=== PATIENT | female | born 1950 | race Caucasian/White ===

== ENCOUNTER 2020-03-28 08:05 | Inpatient (IN) | payer MEDICARE, BC ==
[~2020-03-28 08:05] MED LIST: Ropivacaine 32 ML, dexAMETHasone 8 MG, EPINEPHrine 0.4 MG, Sodium Chloride 0.9% 45.6 ML NERVRT SCH
[2020-03-28] MEDS ORDERED: Rocuronium 50 MG/5 ML Vial ONE (08:18)
[2020-03-28] MEDS ORDERED: Propofol 200 MG/20 ML SDV ONE (08:18)
[2020-03-28] MEDS ORDERED: Glycopyrrolate 0.2 MG/ML 5 ML MDV ONE (08:18)
[2020-03-28] MEDS ORDERED: Neostigmine Methylsulfate 1 MG/ML 5 ML Syringe ONE (08:18)
[2020-03-28] MEDS ORDERED: Dexamethasone 4 MG/ML SDV ONE (08:18)
[2020-03-28] MEDS ORDERED: Ondansetron 4 MG/2 ML SDV ONE (08:18)
[2020-03-28] MEDS ORDERED: Succinylcholine 200 MG/10 ML MDV ONE (08:18)
[2020-03-28] MEDS ORDERED: Sodium Chloride 0.9% 1,000 ML IV SCH (08:30)
[2020-03-28] MEDS ORDERED: metroNIDAZOLE/Normal Saline 500 MG in Premix Bag 1 BAG IV ONE (08:30)
[2020-03-28] MEDS ORDERED: ceFAZolin 2 GM in Premix Bag 1 BAG IV ONE (08:30)
[2020-03-28] MEDS ORDERED: fentaNYL 250 MCG/5 ML SDV ONE (09:20)
[2020-03-28] MEDS ORDERED: Bupivacaine 0.5%/EPINEPHrine 1:200,000 50 ML MDV INJECT ONE ×2 (11:29)
[2020-03-28] MEDS ORDERED: HYDROmorphone/Normal Saline 15 MG/30 ML PCA IV PRN (11:54)
[2020-03-28] MEDS ORDERED: Zolpidem 5 MG Tab PO PRN (11:56)
[2020-03-28] MEDS ORDERED: hydrOXYzine HCL 100 MG/2 ML SDV IM PRN (11:56)
[2020-03-28] MEDS ORDERED: Docusate Sodium 100 MG Cap PO PRN (11:56)
[2020-03-28] MEDS ORDERED: diphenhydrAMINE 50 MG/ML SDV IVPUSH PRN (11:56)
[2020-03-28] MEDS ORDERED: Bisacodyl 5 MG Tab PO PRN (11:56)
[2020-03-28] MEDS ORDERED: Benzocaine/Cetylpyridinium/Menthol Lozenge MUCMEM PRN (11:56)
[2020-03-28] MEDS ORDERED: fentaNYL 100 MCG/2 ML SDV ONE (11:57)
[2020-03-28] MEDS ORDERED: Naloxone 0.4 MG/ML SDV IV PRN (12:00)
[2020-03-28] MEDS ORDERED: fentaNYL 100 MCG/2 ML SDV IVPUSH ONE (12:45)
[2020-03-28] MEDS: Sodium Chloride 0.9% 1,000 ML IV SCH ×2 (13:41→19:50)
--- NOTE | 2020-03-28 14:02 | PCM.CONS ---
H&P History of Present Illness - General Date of Service: 03/28/20 Admit Problem/Dx: Admission Diagnosis/Problem Admission Diagnosis/Problem Hernia of abdominal cavity Source of Information: Patient, Family, Provider, RN Notes Reviewed History Limitations: Reports: Altered Mental Status (Recovering from anesthesia) - History of Present Illness Initial Comments - Free Text/Narative: Ms. Nevarez is a 69-year-old woman who I been asked to see by Dr. Mccormick for assistance in medical management following a large ventral hernia repair. She has a known history of coronary artery disease as well as congestive heart failure. She has been doing well prior to surgery with no symptoms of chest pain and well compensated congestive heart failure. She is status post place ment of a defibrillator/pacemaker. She did well through the surgery and is stable during the initial postoperative period. Abdomen Pain Score (Numeric/FACES): 9 - Related Data Allergies/Adverse Reactions: Allergies Allergy/AdvReac Type Severity Reaction Status Date / Time aspirin Allergy Severe Anaphylactic Verified 03/28/20 08:31 [From [place] (aspirin)] Shock calcium carbonate Allergy Severe Anaphylactic Verified 03/28/20 08:31 [From [place] (aspirin)] Shock magnesium Allergy Severe Anaphylactic Verified 03/28/20 08:31 [From [place] (aspirin)] Shock Bjrgnbc-Opl-Ptt Reductase Allergy Lethargy Verified 03/28/20 08:31 Inhibitor Home Medications: Home Meds Clopidogrel Bisulfate [Clopidogrel] 75 mg PO BEDTIME 06/24/18 [History] Ergocalciferol (Vitamin D2) [Vitamin D2] 100,000 unit PO Q14D 06/24/18 [History] Isosorbide Mononitrate [Isosorbide Mononitrate ER] 1 tab PO DAILY 06/24/18 [History] Losartan Potassium 1 tab PO BID 06/24/18 [History] Warfarin Sodium 5 mg PO .SUN,MTTHSAT 06/24/18 [History] calcitrioL [Calcitriol] 1 cap PO DAILY 06/24/18 [History] carvediloL [Carvedilol] 6.25 mg PO BID 06/24/18 [History] Furosemide [Lasix] 80 mg PO DAILY 06/25/18 [History] Acetaminophen [Tylenol Arthritis] 2 cap PO BID 03/25/20 [History] Citalopram Hydrobromide [Celexa] 40 mg PO DAILY 03/25/20 [History] Denosumab [Prolia] 60 mg SQ .Q6MO 03/25/20 [History] Glucosam/Chond/Collagen/Hyalur [Glucosamine Chondroitin] 1 each PO DAILY 03/25/20 [History] Mirtazapine [Remeron] 15 mg PO BEDTIME 03/25/20 [History] Rosuvastatin [Crestor] 5 mg PO DAILY 03/25/20 [History] Tamsulosin [Tamsulosin 24 Hr] 0.4 mg PO DAILY 03/25/20 [History] Trimo-Kraus 1 applic VAG DAILY 03/25/20 [History] Ubidecarenone [Coenzyme Q10] 100 mg PO DAILY 03/25/20 [History] Warfarin Sodium [Coumadin] 7.5 mg PO .MONANDFRI 03/25/20 [History] metOLazone [Zaroxolyn] 5 mg PO DAILY 03/25/20 [History] Past Medical History HEENT History: Reports: Cataract Cardiovascular History: Reports: Afib, Bypass, Hypertension, Pacemaker, Prior Cardiac Arrest Other Cardiovascular History: QUADRUPLE BYPASS Gastrointestinal History: Reports: Bowel Obstruction Other Gastrointestinal History: Umbilical Hernia 31-years ago Genitourinary History: Reports: Renal Disease MEDICAL RECORDS CODER History: Reports: Musculoskeletal History: Reports: Arthritis Neurological History: Reports: Concussion Psychiatric History: Reports: Depression Endocrine/Metabolic History: Reports: Other (See Below) Other Endocrine/Metabolic History: not after rny Hematologic History: Reports: Anemia, B12 Deficiency, Iron Deficiency Other Hematologic History: coumadin - Infectious Disease History Infectious Disease History: Reports: Chicken Pox, Measles, Mumps - Past Surgical History HEENT Surgical History: Reports: Cataract Surgery Other Cardiovascular Surgeries/Procedures: Open Heart Surgery 21-years ago 06/24/18 GI Surgical History: Reports: Appendectomy, Bariatric Procedure, Cholecystectomy, Colonoscopy, Hernia, Inguinal Female Surgical History: Reports: Section Neurological Surgical History: Reports: None Social & Family History - Family History Family Medical History: Unobtainable - Tobacco Use Smoking Status *Q: Never Smoker Second Hand Smoke Exposure: No - Caffeine Use Caffeine Use: Reports: Soda - Recreational Drug Use Recreational Drug Use: No H&P Review of Systems - Review of Systems: Review Of Systems: See Below General: Reports: ROS unobtainable (Decreased level of consciousness secondary to anesthesia and pain medications) Exam - Exam Exam: See Below - Vital Signs Vital Signs: Last Vital Signs Temp 97.5 F 03/28/20 13:36 Pulse 58 L 03/28/20 13:36 Resp 14 03/28/20 13:36 BP 90/44 L 03/28/20 13:36 Pulse Ox 96 03/28/20 13:36 Weight: 137 lb - Exam Quality Assessment: DVT Prophylaxis General: Sedated, Lethargic Neck: Supple, Trachea Midline, +2 Carotid Pulse wo Bruit Lungs: Clear to Auscultation, Normal Respiratory Effort Cardiovascular: Regular Rate, Normal S1, Normal S2, Irregular Rhythm, Systolic Murmur. No: Diastolic Murmur GI/Abdominal Exam: Soft, No Organomegaly, Tender. No: Distended, Guarding, Rigid, Rebound Extremities: Non-Tender, No Pedal Edema Sepsis Event Note - Focused Exam Vital Signs: Vital Signs Temp Pulse Resp BP Pulse Ox Pulse Ox 03/28/20 13:36 97.5 F 58 L 14 90/44 L 96 03/28/20 13:24 97.5 F 57 L 14 100/40 L 97 03/28/20 13:06 97.5 F 53 L 14 93/48 L 97 03/28/20 12:50 15 106/48 L 95 03/28/20 12:45 14 112/47 L 96 03/28/20 12:40 16 110/52 L 95 03/28/20 12:35 15 106/47 L 95 03/28/20 12:30 15 104/52 L 94 L 03/28/20 12:25 15 105/48 L 96 03/28/20 12:20 15 102/47 L 94 L 03/28/20 12:15 98.6 F 68 16 108/47 L 97 03/28/20 12:10 68 16 110/49 L 97 03/28/20 12:05 68 16 105/44 L 97 03/28/20 12:00 97.9 F 68 16 89/37 L 97 03/28/20 11:56 97 03/28/20 08:49 97.2 F 68 16 117/58 L 95 Date Exam was Performed: 03/28/20 Time Exam was Performed: 13:49 *Q Meaningful Use (ADM) - VTE Risk Assess *Q Each Risk Factor Represents 1 Point: Obesity ( BMI > 25 kg/m2), Congestive heart failure (CHF) Total Score 1 Point Risk Factors: 2 Each Risk Factor Represents 2 Points: Age 60 - 74 Years, Major surgery greater than 45 minutes Total Score 2 Point Risk Factors: 4 Each Risk Factor Represents 3 Points: None Total Score 3 Point Risk Factors: 0 Each Risk Factor Represents 5 Points: None Total Score 5 Point Risk Factors: 0 Venous Thromboembolism Risk Factor Score *Q: 6 Consult PN Assessment/Plan Procedures: Procedures ASSAY OF COPPER (06/24/18) ASSAY OF FERRITIN (06/24/18) ASSAY OF FOLIC ACID SERUM (06/24/18) ASSAY OF MAGNESIUM (06/24/18) ASSAY OF NATRIURETIC PEPTIDE (06/24/18) ASSAY OF PHOSPHORUS (06/24/18) ASSAY OF VITAMIN A (06/24/18) ASSAY OF ZINC (06/24/18) BLOOD TRANSFUSION SERVICE (06/24/18) BLOOD TYPING SEROLOGIC ABO (06/24/18) BLOOD TYPING SEROLOGIC RH(D) (06/24/18) COMPATIBILITY TEST ANTIGLOB (06/24/18) COMPATIBILITY TEST SPIN (06/24/18) COMPLETE CBC AUTOMATED (06/24/18) COMPLETE CBC W/AUTO DIFF WBC (06/24/18) COMPREHEN METABOLIC PANEL (06/24/18) GLUCOSE BLOOD TEST (06/24/18) IIV NO PRSV INCREASED AG IM (06/24/18) METABOLIC PANEL TOTAL CA (06/24/18) PROTHROMBIN TIME (06/24/18) RBC ANTIBODY SCREEN (06/24/18) ROUTINE VENIPUNCTURE (06/24/18) THROMBOPLASTIN TIME PARTIAL (06/24/18) VITAMIN B-12 (06/24/18) X-RAY EXAM CHEST 2 VIEWS (06/24/18) Problem List Initiated/Reviewed/Updated: Yes My Orders Last 24 Hours: My Active Orders 03/28/20 21:00 Losartan [Cozaar] 25 mg PO BID Mirtazapine [Remeron] 15 mg PO BEDTIME carvediloL [Coreg] 6.25 mg PO BID 03/29/20 09:00 Citalopram Hydrobromide [Celexa] 40 mg PO DAILY Furosemide [Lasix] 80 mg PO DAILY Isosorbide Mononitrate [Imdur] 30 mg PO DAILY Rosuvastatin [Crestor] 5 mg PO DAILY Tamsulosin [Flomax] 0.4 mg PO DAILY Plan: ASSESSMENT AND RECOMMENDATIONS STATUS POST LARGE VENTRAL HERNIA REPAIR -Postoperative management per Dr. Mccormick CONGESTIVE HEART FAILURE-well compensated prior to surgery -Continue furosemide, beta-husam, and CHASE inhibitor -Monitor fluid status closely CORONARY ARTERY DISEASE-asymptomatic prior to surgery. Angiogram within the past year showed no evidence of reocclusion. -Continue outpatient medical therapy ATRIAL FIBRILLATION-rate well controlled -Resume anticoagulation when stable from a surgical standpoint. Requesting Provider: RW Date Consult Requested: 03/28/20 Reason for Consult: Medical management of CHF and CAD Patient History Reviewed: Yes
[2020-03-28] MEDS: Losartan 25 MG Tab PO SCH ×2 (20:12→20:59)
[2020-03-28] MEDS: Mirtazapine 15 MG Tab PO SCH (20:12)
[2020-03-28] MEDS: Carvedilol 6.25 MG Tab PO SCH ×2 (20:13→20:59)
[2020-03-28] MEDS ORDERED: Losartan 25 MG Tab PO SCH (21:00)
[2020-03-28] MEDS ORDERED: Carvedilol 6.25 MG Tab PO SCH (21:00)
[2020-03-28] MEDS ORDERED: Mirtazapine 15 MG Tab PO SCH (21:00)
[2020-03-29] MEDS: Sodium Chloride 0.9% 1,000 ML IV SCH ×3 (03:57→19:57)
[2020-03-29] MEDS ORDERED: Sodium Polystyrene Sulfonate 15 GM/60 ML Susp 60 ML Bot PO ONE (05:45)
--- NOTE | 2020-03-29 08:43 | OR ---
DATE OF PROCEDURE: 03/28/2020 SURGEON: Patel Mccormick MD PROCEDURES: 1. Component separation surgery (anterior component separation), 37143. 2. Hernia repair, ventral hernia, 3.2 cm circumference, recurrent, not incarcerated, not strangulated (41110). 3. Repair of hernia, ventral, 2.2 cm, left lower quadrant, nonrecurrent, non-incarcerated, not strangulated (38289). 4. Repair of hernia, ventral, 15.2 x 2.4 x 0.2, recurrent, not incarcerated, non- strangulated (57088). 5. Placement of Seprafilm mesh material to promote prevention. COMPLICATIONS: None. [employer]KER: None. ANESTHESIA: General/local. INDICATIONS: A pleasant 69-year-old female with multiple issues with respect to hernias. The patient is a gastric bypass patient who has had problems with bowel obstruction and internal hernias prior. She required definitive management of all hernias. We discussed risks, benefits, alternatives, and limitations, including, but not limited to, infection, bleeding, recurrence, and other risks. We also discussed with the patient the fact that she has significant comorbidities with respect to cardiovascular and renal issues that may result in a complicated postoperative course including sepsis, , and other risks not listed here. We also discussed possibility of enterotomy as another risk. PROCEDURE IN DETAIL: The patient was placed in supine position. A midline abdominal incision was made. This was carried down through the original incision and extended superiorly. Skin/fat flaps were also created moving in a medial to lateral confirmation bilaterally. This was then mobilized out to approximately the area of linea semilunaris. This is identified by palpating in the nondominant hand. Once this was identified, the external oblique aponeurosis was then opened, and this was dissected in a cranial to caudal manner. A Addis clamp was used to protect internal oblique. This was carried to the costal margin and anterior to the pelvic area. During this process, perforators were encountered. They were attempted to be spared if at all possible. Individual neurovascular indications also attempted to be spared at all times. Once this was performed, it was felt that there was a tensionless area and a component reattachment could be performed. Also, the patient had 2 separate hernias. These were out of the scope of the original hernia, thus precluding complete abatement of all hernias with just component separation surgery. Therefore, mesh was required to be used to repair these 2 separate areas. These were within the scope of the midline. However, they were off to the lower left and upper right. A 26 cm piece of mesh would then be used to overlap both these and the original hernia proper. Interrupted #1 Vicryl sutures were placed x8 around the margin of the mesh. This was then run through the component and then sutured into place. Also of note, Seprafilm was placed between the mesh and the bowel. In addition, this was then sutured with careful attention made not to strangulate the . These were then all hand tied once all of them were placed. Careful attention was made to ensure the bowel was not trapped between the hernia and the mesh. This was then tacked into place every 1 to 2 cm with a tacking system. The components left and right were then closed with #1 Prolene sutures x2. Subcutaneous tissues were reapproximated with #1 Vicryl in 1 layer and 2 layers with 3-0 Vicryl in interrupted fashion. A [place] drain was also placed between the component separation and subcutaneous tissues and albin were placed in. Local anesthetic was injected. The patient tolerated the procedure well. Patel Mccormick MD /[id number]
[2020-03-29] MEDS ORDERED: Isosorbide Mononitrate 30 MG Tab.ER PO SCH (09:00)
[2020-03-29] MEDS ORDERED: Tamsulosin 0.4 MG Cap.ER PO SCH (09:00)
[2020-03-29] MEDS ORDERED: Non-Formulary Medication 1 Each (Rosuvastatin [Crestor] 5 MG) PO SCH (09:00)
[2020-03-29] MEDS ORDERED: Non-Formulary Medication 1 Each (Citalopram Hydrobromide [Celexa] 40 MG) PO SCH ×2 (09:00)
[2020-03-29] MEDS ORDERED: Furosemide 20 MG Tab PO SCH (09:00)
[2020-03-29] MEDS: Enoxaparin 30 MG/0.3 ML Syringe SUBCUT SCH (10:42)
[2020-03-29] MEDS: Citalopram 20 MG Tab PO SCH (10:43)
[2020-03-29] MEDS: Rosuvastatin 10 MG Tab PO SCH (10:43)
[2020-03-29] MEDS: Tamsulosin 0.4 MG Cap.ER PO SCH (10:43)
--- NOTE | 2020-03-29 12:04 | PCM.CONSN ---
- General Info Date of Service: 03/29/20 Subjective Update: Ms. Nevarez remained fairly weak and lethargic, currently experiencing incisional pain as would be expected. Potassium level was elevated this morning and creatinine also elevated from baseline. Urine output has been marginal and blood pressure has remained borderline low. Functional Status: Reports: Ambulating. Denies: Tolerating Diet - Review of Systems General: Reports: Weakness, Fatigue, Malaise. Denies: Fever, Chills Pulmonary: Reports: No Symptoms Cardiovascular: Reports: No Symptoms Gastrointestinal: Reports: Abdominal Pain. Denies: Constipation, Diarrhea, Difficulty Swallowing, Nausea, Vomiting - Patient Data Vitals - Most Recent: Last Vital Signs Temp 98.3 F 03/29/20 11:00 Pulse 73 03/29/20 11:00 Resp 16 03/29/20 11:00 BP 127/54 L 03/29/20 11:00 Pulse Ox 96 03/29/20 11:00 Weight - Most Recent: 137 lb I&O - Last 24 Hours: Intake & Output 03/28/20 03/29/20 03/29/20 22:59 06:59 14:59 Intake Total 622 2045 200 Output Total 500 388 240 Balance 122 1657 -40 Lab Results Last 24 Hours: Laboratory Results - last 24 hr 03/29/20 03/29/20 Range/Units 04:10 04:10 WBC 17.5 H (4.5-11.0) K/uL RBC 2.77 L (3.30-5.50) M/uL Hgb 8.6 L (12.0-15.0) g/dL Hct 28.4 L (36.0-48.0) % MCV 103 H (80-98) fL MCH 31 (27-31) pg MCHC 30 L (32-36) % Plt Count 220 (150-400) K/uL Neut % (Auto) 89 H (36-66) % Lymph % (Auto) 5 L (24-44) % [place] % (Auto) 7 H (2-6) % Eos % (Auto) 0 L (2-4) % Baso % (Auto) 0 (0-1) % Sodium 141 (140-148) mmol/L Potassium 6.2 H* (3.6-5.2) mmol/L Chloride 111 H (100-108) mmol/L Carbon Dioxide 18 L (21-32) mmol/L Anion Gap 18.2 H (5.0-14.0) mmol/L BUN 47 H D (7-18) mg/dL Creatinine 2.1 H D (0.6-1.0) mg/dL Est Cr Clr Drug Dosing 17.65 mL/min Estimated GFR (MDRD) 23 L (>60) Glucose 201 H (74-106) mg/dL Calcium 7.5 L (8.5-10.1) mg/dL Med Orders - Current: Current Medications Benzocaine/Menthol (Cepacol Sore Throat) 1 lozenge MUCMEM Q1H PRN PRN Reason: Sore Throat Bisacodyl (Dulcolax) 5 mg PO DAILY PRN PRN Reason: Constipation Carvedilol (Coreg) 6.25 mg PO BID [facility] Last Admin: 03/28/20 20:59 Dose: Not Given Documented by: Citalopram Hydrobromide (Celexa) 40 mg PO DAILY [facility] Last Admin: 03/29/20 10:43 Dose: 40 mg Documented by: Diphenhydramine HCl (Benadryl) 50 mg IVPUSH Q4H PRN PRN Reason: Itching Docusate Sodium (Colace) 100 mg PO BID PRN PRN Reason: Constipation Enoxaparin Sodium (Lovenox) 30 mg SUBCUT DAILY [facility] Last Admin: 03/29/20 10:42 Dose: 30 mg Documented by: Furosemide (Lasix) 80 mg PO DAILY [facility] Hydromorphone HCl (Dilaudid Office Communication Professor 15 Mg In Ns 30 Ml) 0 mg IV ASDIRECTED PRN; Protocol PRN Reason: [employer] PAIN CONTROL Last Admin: 03/28/20 12:08 Dose: 1.5 mg Documented by: Hydroxyzine HCl (Vistaril) 50 mg IM Q4H PRN PRN Reason: Nausea Last Admin: 03/28/20 12:39 Dose: 50 mg Documented by: Sodium Chloride (Normal Saline) 1,000 mls @ 125 mls/hr IV ASDIRECTED [facility] Last Admin: 03/29/20 11:50 Dose: 125 mls/hr Documented by: Isosorbide Mononitrate (Imdur) 30 mg PO DAILY [facility] Losartan Potassium (Cozaar) 25 mg PO BID [facility] Last Admin: 03/28/20 20:59 Dose: Not Given Documented by: Mirtazapine (Remeron) 15 mg PO BEDTIME [facility] Last Admin: 03/28/20 20:12 Dose: 15 mg Documented by: Naloxone HCl (Narcan) 0.1 mg IV ASDIRECTED PRN PRN Reason: decreased respiratory rate Rosuvastatin Calcium (Crestor) 5 mg PO DAILY [facility] Last Admin: 03/29/20 10:43 Dose: 5 mg Documented by: Senna/Docusate Sodium (Senna Plus) 1 tab PO BID PRN PRN Reason: Constipation Tamsulosin HCl (Flomax) 0.4 mg PO DAILY [facility] Last Admin: 03/29/20 10:43 Dose: 0.4 mg Documented by: Zolpidem Tartrate (Ambien) 5 mg PO BEDTIME PRN PRN Reason: Insomnia Discontinued Medications Bupivacaine HCl/Epinephrine Bitart (Marcaine 0.5%/Epinephrine 1:200,000) 40 ml INJECT .STK-MED ONE Stop: 03/28/20 11:30 Last Admin: 03/28/20 11:29 Dose: 40 ml Documented by: Carvedilol (Coreg) 6.25 mg PO BID [facility] Ropivacaine 32 ml/Dexamethasone 8 mg/Epinephrine HCl 0.4 mg/ Sodium Chloride 45.6 ml 0 ml NERVRT ASDIRECTED [facility] Last Admin: 03/28/20 09:48 Dose: 80 syringe Documented by: Dexamethasone (Dexamethasone) Confirm Administered Dose 4 mg .ROUTE .STK-MED ONE Stop: 03/28/20 08:19 Fentanyl (Sublimaze) Confirm Administered Dose 250 mcg .ROUTE .STK-MED ONE Stop: 03/28/20 09:21 Fentanyl (Sublimaze) Confirm Administered Dose 100 mcg .ROUTE .STK-MED ONE Stop: 03/28/20 11:58 Fentanyl (Sublimaze) 50 mcg IVPUSH ONETIME ONE Stop: 03/28/20 12:46 Last Admin: 03/28/20 17:56 Dose: Not Given Documented by: Furosemide (Lasix) 80 mg PO DAILY [facility] Glycopyrrolate (Robinul) Confirm Administered Dose 1 mg .ROUTE .STK-MED ONE Stop: 03/28/20 08:19 Sodium Chloride (Normal Saline) 1,000 mls @ 75 mls/hr IV ASDIRECTED [facility] Last Admin: 03/28/20 09:05 Dose: 75 mls/hr Documented by: Cefazolin Sodium/Dextrose 2 gm (/ Premix) 50 mls @ 100 mls/hr IV ONETIME ONE Stop: 03/28/20 08:59 Last Admin: 03/28/20 09:06 Dose: 100 mls/hr Documented by: Metronidazole 500 mg/ Premix 100 mls @ 100 mls/hr IV ONETIME ONE Stop: 03/28/20 09:29 Last Admin: 03/28/20 09:10 Dose: 100 mls/hr Documented by: Isosorbide Mononitrate (Imdur) 30 mg PO DAILY [facility] Losartan Potassium (Cozaar) 25 mg PO BID [facility] Mirtazapine (Remeron) 15 mg PO BEDTIME [facility] Neostigmine Methylsulfate (Neostigmine) Confirm Administered Dose 5 mg .ROUTE .STK-MED ONE Stop: 03/28/20 08:19 Non-Formulary Medication (Citalopram Hydrobromide [Celexa]) 40 mg PO DAILY [facility] Non-Formulary Medication (Rosuvastatin [Crestor]) 5 mg PO DAILY [facility] Ondansetron HCl (Zofran) Confirm Administered Dose 4 mg .ROUTE .STK-MED ONE Stop: 03/28/20 08:19 Propofol (Diprivan 20 Ml) Confirm Administered Dose 200 mg .ROUTE .STK-MED ONE Stop: 03/28/20 08:19 Rocuronium [place] (Zemuron) Confirm Administered Dose 50 mg .ROUTE .STK-MED ONE Stop: 03/28/20 08:19 Sodium Polystyrene Sulfonate (Kayexalate) 30 gm PO ONETIME ONE Stop: 03/29/20 05:46 Last Admin: 03/29/20 06:12 Dose: 30 gm Documented by: Succinylcholine Chloride (Quelicin) Confirm Administered Dose 200 mg .ROUTE .S TK-MED ONE Stop: 03/28/20 08:19 Tamsulosin HCl (Flomax) 0.4 mg PO DAILY [facility] - Exam Quality Assessment: DVT Prophylaxis General: Alert, Oriented, Cooperative, Moderate Distress Lungs: Clear to Auscultation, Normal Respiratory Effort Cardiovascular: Regular Rate, Regular Rhythm, No Murmurs GI/Abdominal Exam: Soft, No Organomegaly, Tender. No: Distended, Guarding, Rigid, Rebound Extremities: Non-Tender, No Pedal Edema Sepsis Event Note - Evaluation Sepsis Screening Result: No Definite Risk - Focused Exam Vital Signs: Vital Signs Temp Temp Pulse Resp BP Pulse Ox 03/29/20 11:00 98.3 F 73 16 127/54 L 96 03/29/20 07:15 97 03/29/20 07:09 97.7 F 76 14 113/54 L 97 03/29/20 03:55 98.5 F 72 12 111/49 L 98 03/29/20 01:32 98 03/29/20 00:48 62 12 100/52 L 98 Date Exam was Performed: 03/29/20 Time Exam was Performed: 12:00 Consult PN Assessment/Plan Procedures: Procedures ASSAY OF COPPER (06/24/18) ASSAY OF FERRITIN (06/24/18) ASSAY OF FOLIC ACID SERUM (06/24/18) ASSAY OF MAGNESIUM (06/24/18) ASSAY OF NATRIURETIC PEPTIDE (06/24/18) ASSAY OF PHOSPHORUS (06/24/18) ASSAY OF VITAMIN A (06/24/18) ASSAY OF ZINC (06/24/18) BLOOD TRANSFUSION SERVICE (06/24/18) BLOOD TYPING SEROLOGIC ABO (06/24/18) BLOOD TYPING SEROLOGIC RH(D) (06/24/18) COMPATIBILITY TEST ANTIGLOB (06/24/18) COMPATIBILITY TEST SPIN (06/24/18) COMPLETE CBC AUTOMATED (06/24/18) COMPLETE CBC W/AUTO DIFF WBC (06/24/18) COMPREHEN METABOLIC PANEL (06/24/18) GLUCOSE BLOOD TEST (06/24/18) IIV NO PRSV INCREASED AG IM (06/24/18) METABOLIC PANEL TOTAL CA (06/24/18) PROTHROMBIN TIME (06/24/18) RBC ANTIBODY SCREEN (06/24/18) ROUTINE VENIPUNCTURE (06/24/18) THROMBOPLASTIN TIME PARTIAL (06/24/18) VITAMIN B-12 (06/24/18) X-RAY EXAM CHEST 2 VIEWS (06/24/18) Problem List Initiated/Reviewed/Updated: Yes My Orders Last 24 Hours: My Active Orders 03/28/20 16:44 Cardiac Monitoring [RC] .As Directed 03/28/20 21:00 Losartan [Cozaar] 25 mg PO BID Mirtazapine [Remeron] 15 mg PO BEDTIME carvediloL [Coreg] 6.25 mg PO BID 03/29/20 09:00 Citalopram [Celexa] 40 mg PO DAILY Furosemide [Lasix] 80 mg PO DAILY Isosorbide Mononitrate [Imdur] 30 mg PO DAILY Rosuvastatin [Crestor] 5 mg PO DAILY Tamsulosin [Flomax] 0.4 mg PO DAILY 03/29/20 13:00 BASIC METABOLIC PANEL,BMP [CHEM] Stat Plan: ASSESSMENT AND RECOMMENDATIONS STATUS POST LARGE VENTRAL HERNIA REPAIR -Postoperative management per Dr. Mccormick CONGESTIVE HEART FAILURE-well compensated prior to surgery, no evidence of significant fluid overload or failure at this time -Hold furosemide, beta-husam, and CHASE inhibitor, because of low blood pressures -Monitor fluid status closely CORONARY ARTERY DISEASE-asymptomatic prior to surgery. Angiogram within the past year showed no evidence of reocclusion. -Continue outpatient medical therapy ACUTE KIDNEY INJURY -Closely monitor urine output and renal function HYPERKALEMIA-secondary to acute kidney injury -Kayexalate 30 g given this morning -Recheck potassium level this afternoon ATRIAL FIBRILLATION-rate well controlled -Resume anticoagulation when stable from a surgical standpoint.
--- NOTE | 2020-03-29 12:19 | PN ---
DATE OF SERVICE: 03/29/2020 SUBJECTIVE: The patient is doing well. Her pain is controlled. No nausea, vomiting, shortness of breath, or chest pain. OBJECTIVE: VITAL SIGNS: Stable. Afebrile per nursing report. CARDIOVASCULAR: Regular rhythm and rate. RESPIRATORY: Lungs clear to consultation bilaterally. ABDOMEN: Dressing intact. ASSESSMENT AND PLAN: Status post open component hernia separation surgery. PLAN: Hospitalist Service will start seeing the patient today due to the issue related to her renal failure and general cardiovascular issues. She will continue to work on diet and activity today. Pain is tolerable. We will start Lovenox today and repeat labs in a.m. Patel Mccormick MD /[id number]
[2020-03-29] MEDS: Furosemide 40 MG Tab PO SCH (13:43)
[2020-03-29] MEDS: Isosorbide Mononitrate 30 MG Tab.ER PO SCH (13:43)
[2020-03-29] MEDS: Carvedilol 6.25 MG Tab PO SCH ×2 (13:43→21:01)
[2020-03-29] MEDS: Mirtazapine 15 MG Tab PO SCH (21:02)
[2020-03-30] MEDS: Sodium Chloride 0.9% 1,000 ML IV SCH (03:37)
[2020-03-30] MEDS ORDERED: Calcium Gluconate 2 GM in Sodium Chloride 0.9% 100 ML IV ONE ×2 (08:00→17:36)
[2020-03-30] MEDS: Rosuvastatin 10 MG Tab PO SCH (08:54)
[2020-03-30] MEDS: Losartan 25 MG Tab PO SCH ×2 (08:54→20:35)
[2020-03-30] MEDS: Isosorbide Mononitrate 30 MG Tab.ER PO SCH (08:54)
[2020-03-30] MEDS: Furosemide 40 MG Tab PO SCH (08:54)
[2020-03-30] MEDS: Citalopram 20 MG Tab PO SCH (08:55)
[2020-03-30] MEDS: Carvedilol 6.25 MG Tab PO SCH ×2 (08:55→20:34)
[2020-03-30] MEDS: Tamsulosin 0.4 MG Cap.ER PO SCH (08:55)
[2020-03-30] MEDS: Enoxaparin 30 MG/0.3 ML Syringe SUBCUT SCH (08:56)
--- NOTE | 2020-03-30 09:15 | PN ---
DATE OF SERVICE: 03/30/2020 SUBJECTIVE: Patient is doing very well today. Pain is well controlled. No nausea, vomiting, shortness of breath, or chest pain. OBJECTIVE: VITAL SIGNS: Stable. Afebrile per nursing report. CARDIOVASCULAR: Regular rhythm and rate. RESPIRATORY: Lungs clear to consultation bilaterally. ABDOMEN: Dressing was removed. Incision healing well without evidence of cellulitis or abnormality. ASSESSMENT: Status post hernia repair. PLAN: 1. Fluid, electrolytes and nutrition: Dr. De La Cruz will continue to see the patient with respect to her electrolytes and fluid balance. 2. Hematology: Hemoglobin is 7.4. This is now stabilizing. No evidence of hematoma or abnormality in the abdomen on inspection; however, if hemoglobin continues to drift, we will evaluate for possible hematoma. 3. Gastrointestinal: No gastrointestinal activity at this point. Awaiting function. 4. Activity: Continue to increase ambulation. We will also have the patient shower today. 5. Prophylaxis: The patient remains on Lovenox daily. Patel Mccormick MD /[id number]
--- NOTE | 2020-03-30 10:59 | PCM.CONSN ---
- General Info Date of Service: 03/30/20 Subjective Update: Ms. Nevarez is fairly weak and has had ongoing difficulty with abdominal pain as would be expected. Calcium level found to be low today and she is currently receiving IV calcium replacement. Renal function has continued to improve. Hemoglobin has dropped to 7.4 and given her underlying cardiac disease we will plan to transfuse, to get hemoglobin greater than 8. - Review of Systems General: Reports: Weakness, Fatigue. Denies: Fever, Chills Pulmonary: Reports: No Symptoms Cardiovascular: Reports: No Symptoms Gastrointestinal: Reports: Abdominal Pain. Denies: Difficulty Swallowing, Nausea, Vomiting Musculoskeletal: Reports: Joint Pain (Left ankle pain) - Patient Data Vitals - Most Recent: Last Vital Signs Temp 99.6 F 03/30/20 07:40 Pulse 118 H 03/30/20 08:55 Resp 16 03/30/20 07:40 BP 133/60 03/30/20 08:55 Pulse Ox 96 03/30/20 07:40 Weight - Most Recent: 136 lb 15.994 oz I&O - Last 24 Hours: Intake & Output 03/29/20 03/30/20 03/30/20 22:59 06:59 14:59 Intake Total 1723 1815 300 Output Total 465 355 Balance 1258 1460 300 Lab Results Last 24 Hours: Laboratory Results - last 24 hr 03/29/20 03/29/20 03/30/20 Range/Units 13:13 20:56 05:37 WBC 10.3 (4.5-11.0) K/uL RBC 2.44 L (3.30-5.50) M/uL Hgb 7.4 L (12.0-15.0) g/dL Hct 24.6 L (36.0-48.0) % MCV 101 H (80-98) fL MCH 30 (27-31) pg MCHC 30 L (32-36) % Plt Count 165 (150-400) K/uL Sodium 140 121 L (140-148) mmol/L Potassium 5.8 H 5.1 (3.6-5.2) mmol/L Chloride 109 H 105 (100-108) mmol/L Carbon Dioxide 19 L 18 L (21-32) mmol/L Anion Gap 17.8 H 3.1 L (5.0-14.0) mmol/L BUN 44 H 43 H (7-18) mg/dL Creatinine 2.0 H 1.8 H (0.6-1.0) mg/dL Est Cr Clr Drug Dosing 18.53 20.59 mL/min Estimated GFR (MDRD) 25 L 28 L (>60) Glucose 161 H 142 H (74-106) mg/dL Calcium 7.2 L 7.0 L (8.5-10.1) mg/dL POC WB Ioniz Calcium (1.12-1.32) mmol/L 03/30/20 03/30/20 Range/Units 05:37 08:23 WBC (4.5-11.0) K/uL RBC (3.30-5.50) M/uL Hgb (12.0-15.0) g/dL Hct (36.0-48.0) % MCV (80-98) fL MCH (27-31) pg MCHC (32-36) % Plt Count (150-400) K/uL Sodium 139 L (140-148) mmol/L Potassium 4.7 (3.6-5.2) mmol/L Chloride 111 H (100-108) mmol/L Carbon Dioxide 21 (21-32) mmol/L Anion Gap 11.7 (5.0-14.0) mmol/L BUN 38 H (7-18) mg/dL Creatinine 1.6 H (0.6-1.0) mg/dL Est Cr Clr Drug Dosing 23.16 mL/min Estimated GFR (MDRD) 32 L (>60) Glucose 109 H (74-106) mg/dL Calcium 6.6 L* (8.5-10.1) mg/dL POC WB Ioniz Calcium 0.95 L* (1.12-1.32) mmol/L Med Orders - Current: Current Medications Benzocaine/Menthol (Cepacol Sore Throat) 1 lozenge MUCMEM Q1H PRN PRN Reason: Sore Throat Bisacodyl (Dulcolax) 5 mg PO DAILY PRN PRN Reason: Constipation Carvedilol (Coreg) 6.25 mg PO BID [facility] Last Admin: 03/30/20 08:55 Dose: 6.25 mg Documented by: Citalopram Hydrobromide (Celexa) 40 mg PO DAILY [facility] Last Admin: 03/30/20 08:55 Dose: 40 mg Documented by: Colchicine (Colcrys) 0.3 mg PO ONETIME ONE Stop: 03/30/20 10:52 Diphenhydramine HCl (Benadryl) 50 mg IVPUSH Q4H PRN PRN Reason: Itching Docusate Sodium (Colace) 100 mg PO BID PRN PRN Reason: Constipation Enoxaparin Sodium (Lovenox) 30 mg SUBCUT DAILY [facility] Last Admin: 03/30/20 08:56 Dose: 30 mg Documented by: Ferrous Sulfate (Ferrous Sulfate) 325 mg PO BIDMEALS [facility] Furosemide (Lasix) 80 mg PO DAILY [facility] Last Admin: 03/30/20 08:54 Dose: 80 mg Documented by: Hydromorphone HCl (Dilaudid Cotton Picking Machine Operator 15 Mg In Ns 30 Ml) 0 mg IV ASDIRECTED PRN; Protocol PRN Reason: PERIANESTHESIA RN PAIN CONTROL Last Admin: 03/28/20 12:08 Dose: 1.5 mg Documented by: Hydroxyzine HCl (Vistaril) 50 mg IM Q4H PRN PRN Reason: Nausea Last Admin: 03/28/20 12:39 Dose: 50 mg Documented by: Isosorbide Mononitrate (Imdur) 30 mg PO DAILY [facility] Last Admin: 03/30/20 08:54 Dose: 30 mg Documented by: Losartan Potassium (Cozaar) 25 mg PO BID [facility] Last Admin: 03/30/20 08:54 Dose: 25 mg Documented by: Mirtazapine (Remeron) 15 mg PO BEDTIME [facility] Last Admin: 03/29/20 21:02 Dose: 15 mg Documented by: Naloxone HCl (Narcan) 0.1 mg IV ASDIRECTED PRN PRN Reason: decreased respiratory rate Rosuvastatin Calcium (Crestor) 5 mg PO DAILY [facility] Last Admin: 03/30/20 08:54 Dose: 5 mg Documented by: Senna/Docusate Sodium (Senna Plus) 1 tab PO BID PRN PRN Reason: Constipation Tamsulosin HCl (Flomax) 0.4 mg PO DAILY [facility] Last Admin: 03/30/20 08:55 Dose: 0.4 mg Documented by: Zolpidem Tartrate (Ambien) 5 mg PO BEDTIME PRN PRN Reason: Insomnia Discontinued Medications Bupivacaine HCl/Epinephrine Bitart (Marcaine 0.5%/Epinephrine 1:200,000) 40 ml INJECT .[facility] ONE Stop: 03/28/20 11:30 Last Admin: 03/28/20 11:29 Dose: 40 ml Documented by: Carvedilol (Coreg) 6.25 mg PO BID [facility] Ropivacaine 32 ml/Dexamethasone 8 mg/Epinephrine HCl 0.4 mg/ Sodium Chloride 45.6 ml 0 ml NERVRT ASDIRECTED [facility] Last Admin: 03/28/20 09:48 Dose: 80 syringe Documented by: Dexamethasone (Dexamethasone) Confirm Administered Dose 4 mg .ROUTE .[facility] ONE Stop: 03/28/20 08:19 Fentanyl (Sublimaze) Confirm Administered Dose 250 mcg .ROUTE .[facility] ONE Stop: 03/28/20 09:21 Fentanyl (Sublimaze) Confirm Administered Dose 100 mcg .ROUTE .[facility] ONE Stop: 03/28/20 11:58 Fentanyl (Sublimaze) 50 mcg IVPUSH ONETIME ONE Stop: 03/28/20 12:46 Last Admin: 03/28/20 17:56 Dose: Not Given Documented by: Furosemide (Lasix) 80 mg PO DAILY [facility] Glycopyrrolate (Robinul) Confirm Administered Dose 1 mg .ROUTE .[facility] ONE Stop: 03/28/20 08:19 Sodium Chloride (Normal Saline) 1,000 mls @ 75 [facility]ls[facility] Admin: 03/28/20 09:05 Dose: 75 mls/hr Documented by: Cefazolin Sodium/Dextrose 2 gm (/ Premix) 50 mls @ 100 mls/hr IV ONETIME ONE Stop: 03/28/20 08:59 Last Admin: 03/28/20 09:06 Dose: 100 mls/hr Documented by: Metronidazole 500 mg/ Premix 100 mls @ 100 mls/hr IV ONETIME ONE Stop: 03/28/20 09:29 Last Admin: 03/28/20 09:10 Dose: 100 mls/hr Documented by: Sodium Chloride (Normal Saline) 1,000 mls @ 125 mls/hr IV ASDIRECTED [facility] Last Admin: 03/30/20 03:37 Dose: 125 mls/hr Documented by: Calcium Gluconate 2 gm/ Sodium (Chloride) 120 mls @ 60 mls/hr IV ONETIME ONE Stop: 03/30/20 09:59 Last Admin: 03/30/20 08:13 Dose: 60 mls/hr Documented by: Isosorbide Mononitrate (Imdur) 30 mg PO DAILY [facility] Losartan Potassium (Cozaar) 25 mg PO BID [facility] Mirtazapine (Remeron) 15 mg PO BEDTIME [facility] Neostigmine Methylsulfate (Neostigmine) Confirm Administered Dose 5 mg .ROUTE .STK-MED ONE Stop: 03/28/20 08:19 Non-Formulary Medication (Citalopram Hydrobromide [Celexa]) 40 mg PO DAILY [facility] Non-Formulary Medication (Rosuvastatin [Crestor]) 5 mg PO DAILY [facility] Ondansetron HCl (Zofran) Confirm Administered Dose 4 mg .ROUTE .STK-MED ONE Stop: 03/28/20 08:19 Propofol (Diprivan 20 Ml) Confirm Administered Dose 200 mg .ROUTE .STK-MED ONE Stop: 03/28/20 08:19 Rocuronium [place] (Zemuron) Confirm Administered Dose 50 mg .ROUTE .STK-MED ONE Stop: 03/28/20 08:19 Sodium Polystyrene Sulfonate (Kayexalate) 30 gm PO ONETIME ONE Stop: 03/29/20 05:46 Last Admin: 03/29/20 06:12 Dose: 30 gm Documented by: Succinylcholine Chloride (Quelicin) Confirm Administered Dose 200 mg .ROUTE .STK-MED ONE Stop: 03/28/20 08:19 Tamsulosin HCl (Flomax) 0.4 mg PO DAILY [facility] - Exam Quality Assessment: DVT Prophylaxis General: Alert, Oriented, Cooperative, No Acute Distress, Moderate Distress Lungs: Clear to Auscultation, Normal Respiratory Effort Cardiovascular: Regular Rate, Regular Rhythm, No Murmurs GI/Abdominal Exam: Soft, No Organomegaly, Tender. No: Distended, Guarding, Rigid, Rebound Extremities: Other (Mild swelling and pain left ankle, no erythema) Sepsis Event Note - Evaluation Sepsis Screening Result: No Definite Risk - Focused Exam Vital Signs: Vital Signs Temp Pulse Pulse Resp BP BP Pulse Ox 03/30/20 08:55 118 H 133/60 03/30/20 08:54 133/60 03/30/20 07:40 99.6 F 88 16 133/60 96 03/30/20 07:35 96 03/30/20 01:26 99 03/29/20 23:03 99.2 F 76 16 146/66 H 99 Date Exam was Performed: 03/30/20 Time Exam was Performed: 10:53 Consult PN Assessment/Plan Procedures: Procedures ASSAY OF COPPER (06/24/18) ASSAY OF FERRITIN (06/24/18) ASSAY OF FOLIC ACID SERUM (06/24/18) ASSAY OF MAGNESIUM (06/24/18) ASSAY OF NATRIURETIC PEPTIDE (06/24/18) ASSAY OF PHOSPHORUS (06/24/18) ASSAY OF VITAMIN A (06/24/18) ASSAY OF ZINC (06/24/18) BLOOD TRANSFUSION SERVICE (06/24/18) BLOOD TYPING SEROLOGIC ABO (06/24/18) BLOOD TYPING SEROLOGIC RH(D) (06/24/18) COMPATIBILITY TEST ANTIGLOB (06/24/18) COMPATIBILITY TEST SPIN (06/24/18) COMPLETE CBC AUTOMATED (06/24/18) COMPLETE CBC W/AUTO DIFF WBC (06/24/18) COMPREHEN METABOLIC PANEL (06/24/18) GLUCOSE BLOOD TEST (06/24/18) IIV NO PRSV INCREASED AG IM (06/24/18) METABOLIC PANEL TOTAL CA (06/24/18) PROTHROMBIN TIME (06/24/18) RBC ANTIBODY SCREEN (06/24/18) ROUTINE VENIPUNCTURE (06/24/18) THROMBOPLASTIN TIME PARTIAL (06/24/18) VITAMIN B-12 (06/24/18) X-RAY EXAM CHEST 2 VIEWS (06/24/18) Problem List Initiated/Reviewed/Updated: Yes My Orders Last 24 Hours: My Active Orders 03/30/20 08:23 Convert IV to Saline Lock [OM.PC] Routine 03/30/20 10:46 RED BLOOD CELLS LP [BBK] Urgent TYPE AND SCREEN [BBK] Routine TYPE AND SCREEN [BBK] Urgent Transfuse Red Blood Cells [COMM] Urgent 03/30/20 10:51 Colchicine [Colcrys] 0.3 mg PO ONETIME ONE 03/30/20 10:52 Discontinue Telemetry Monitoring [Cardiac Monitoring Discontinue] [RC] Click to Edit 03/30/20 17:00 CALCIUM, IONIZED, SERUM Stat Ferrous Sulfate 325 mg PO BIDMEALS 03/31/20 05:00 BASIC METABOLIC PANEL,BMP [CHEM] Timed CALCIUM, IONIZED, SERUM Routine CBC WITH AUTO DIFF [HEME] Timed Plan: ASSESSMENT AND RECOMMENDATIONS STATUS POST LARGE VENTRAL HERNIA REPAIR -Postoperative management per Dr. Mccormick CONGESTIVE HEART FAILURE-well compensated prior to surgery, no evidence of significant fluid overload or failure at this time -Resume furosemide ARB and beta-husam -Monitor fluid status closely ANEMIA-chronic, drop postoperatively likely secondary to surgery. Hemoglobin currently 7.4 but will plan to transfuse because of her significant underlying cardiac disease. We will have a goal hemoglobin of greater than 8 -Transfuse 1 unit of red blood cells -Recheck hemoglobin in a.m. LEFT ANKLE PAIN-modest swelling and increased warmth, no erythema. Suspect gout versus pseudogout. Management options limited because of chronic kidney disease and recent surgery -PT consult -Colchicine 0.3 mg p.o. x1 CORONARY ARTERY DISEASE-asymptomatic prior to surgery. Angiogram within the past year showed no evidence of reocclusion. -Continue outpatient medical therapy ACUTE KIDNEY INJURY-no function has continued to slowly improve -Closely monitor urine output and renal function HYPERKALEMIA-solved ATRIAL FIBRILLATION-rate well controlled -Resume anticoagulation when stable from a surgical standpoint.
[2020-03-30] MEDS ORDERED: Colchicine 0.6 MG Tab PO ONE (11:15)
[2020-03-30] MEDS: Ferrous Sulfate 325 MG Tab PO SCH (17:08)
[2020-03-30] MEDS: Mirtazapine 15 MG Tab PO SCH (20:35)
[2020-03-31] MEDS ORDERED: Docusate Sodium 100 MG Cap PO PRN (07:53)
[2020-03-31] MEDS ORDERED: fentaNYL 100 MCG/2 ML SDV IVPUSH PRN (07:54)
[2020-03-31] MEDS ORDERED: Acetaminophen/oxyCODONE 325-10 MG Tab PO PRN (07:54)
[2020-03-31] MEDS ORDERED: Potassium Chloride 20 MEQ Tab.ER PO ONE (08:30)
[2020-03-31] MEDS ORDERED: Calcium Gluconate 2 GM in Sodium Chloride 0.9% 100 ML IV ONE (09:30)
--- NOTE | 2020-03-31 09:47 | US ---
Abdomen Ltd CLINICAL HISTORY: Abdominal hematoma, hernia FINDINGS: Real-time images were obtained over the anterior abdominal wall near the incision site and laterally. There is a small fluid collection in the midportion the incision on the left measuring 1.7 x 0.6 x 1.1 cm. This likely represents a small hematoma. No blood flow seen within. This is approximately 1.4 cm deep from the skin. This area was marked IMPRESSION: Small brian incisional hematoma
[2020-03-31] MEDS: Isosorbide Mononitrate 30 MG Tab.ER PO SCH (10:21)
[2020-03-31] MEDS: Rosuvastatin 10 MG Tab PO SCH (10:21)
[2020-03-31] MEDS: Carvedilol 6.25 MG Tab PO SCH ×2 (10:22→20:33)
[2020-03-31] MEDS: Citalopram 20 MG Tab PO SCH (10:22)
[2020-03-31] MEDS: Losartan 25 MG Tab PO SCH ×2 (10:22→20:33)
[2020-03-31] MEDS: Ferrous Sulfate 325 MG Tab PO SCH ×2 (10:22→18:02)
[2020-03-31] MEDS: Tamsulosin 0.4 MG Cap.ER PO SCH (10:23)
[2020-03-31] MEDS: Furosemide 40 MG Tab PO SCH (10:23)
[2020-03-31] MEDS: Enoxaparin 30 MG/0.3 ML Syringe SUBCUT SCH (10:24)
[2020-03-31] MEDS: Magnesium Hydroxide 400 MG/5 ML Susp 30 ML Cup PO SCH ×2 (10:33→20:31)
[2020-03-31] MEDS: Acetaminophen/oxyCODONE 325-5 MG Tab PO PRN ×3 (10:33→22:08)
--- NOTE | 2020-03-31 12:00 | PCM.CONSN ---
- General Info Date of Service: 03/31/20 Subjective Update: Ms. Nevarez is been stable since yesterday, tolerated transfusion of 1 unit of red blood cells. Hemoglobin this morning is now at 8.1 following transfusion yesterday. Functional Status: Reports: Tolerating Diet, Ambulating - Review of Systems General: Reports: Weakness, Fatigue, Malaise. Denies: Fever, Chills Pulmonary: Reports: No Symptoms Cardiovascular: Reports: No Symptoms Gastrointestinal: Reports: No Symptoms - Patient Data Vitals - Most Recent: Last Vital Signs Temp 98.0 F 03/31/20 10:39 Pulse 82 03/31/20 10:39 Resp 18 03/31/20 10:39 BP 143/54 H 03/31/20 10:39 Pulse Ox 99 03/31/20 10:39 Weight - Most Recent: 136 lb 15.994 oz I&O - Last 24 Hours: Intake & Output 03/30/20 03/31/20 03/31/20 22:59 06:59 14:59 Intake Total 770 793 Output Total 1550 350 Balance -780 -350 793 Lab Results Last 24 Hours: Laboratory Results - last 24 hr 03/30/20 03/30/20 03/31/20 Range/Units 11:05 17:05 04:10 WBC 9.8 (4.5-11.0) K/uL RBC 2.65 L (3.30-5.50) M/uL Hgb 8.1 L (12.0-15.0) g/dL Hct 25.5 L (36.0-48.0) % MCV 96 (80-98) fL MCH 31 (27-31) pg MCHC 32 (32-36) % Plt Count 170 (150-400) K/uL Neut % (Auto) 82 H (36-66) % Lymph % (Auto) 8 L (24-44) % [place] % (Auto) 7 H (2-6) % Eos % (Auto) 2 (2-4) % Baso % (Auto) 0 (0-1) % Sodium (140-148) mmol/L Potassium (3.6-5.2) mmol/L Chloride (100-108) mmol/L Carbon Dioxide (21-32) mmol/L Anion Gap (5.0-14.0) mmol/L BUN (7-18) mg/dL Creatinine (0.6-1.0) mg/dL Est Cr Clr Drug Dosing mL/min Estimated GFR (MDRD) (>60) Glucose (74-106) mg/dL Calcium (8.5-10.1) mg/dL POC WB Ioniz Calcium 0.85 L* (1.12-1.32) mmol/L Blood Type O POSITIVE Gel Antibody Screen Negative Crossmatch See Detail 03/31/20 03/31/20 Range/Units 04:10 04:10 WBC (4.5-11.0) K/uL RBC (3.30-5.50) M/uL Hgb (12.0-15.0) g/dL Hct (36.0-48.0) % MCV (80-98) fL MCH (27-31) pg MCHC (32-36) % Plt Count (150-400) K/uL Neut % (Auto) (36-66) % Lymph % (Auto) (24-44) % [place] % (Auto) (2-6) % Eos % (Auto) (2-4) % Baso % (Auto) (0-1) % Sodium 142 (140-148) mmol/L Potassium 3.4 L (3.6-5.2) mmol/L Chloride 111 H (100-108) mmol/L Carbon Dioxide 21 (21-32) mmol/L Anion Gap 13.4 (5.0-14.0) mmol/L BUN 33 H (7-18) mg/dL Creatinine 1.5 H (0.6-1.0) mg/dL Est Cr Clr Drug Dosing 24.71 mL/min Estimated GFR (MDRD) 34 L (>60) Glucose 105 (74-106) mg/dL Calcium 7.3 L (8.5-10.1) mg/dL POC WB Ioniz Calcium 1.10 L (1.12-1.32) mmol/L Blood Type Gel Antibody Screen Crossmatch Med Orders - Current: Current Medications Benzocaine/Menthol (Cepacol Sore Throat) 1 lozenge MUCMEM Q1H PRN PRN Reason: Sore Throat Bisacodyl (Dulcolax) 5 mg PO DAILY PRN PRN Reason: Constipation Carvedilol (Coreg) 6.25 mg PO BID [facility] Last Admin: 03/31/20 10:22 Dose: 6.25 mg Documented by: Citalopram Hydrobromide (Celexa) 40 mg PO DAILY [facility] Last Admin: 03/31/20 10:22 Dose: 40 mg Documented by: Diphenhydramine HCl (Benadryl) 50 mg IVPUSH Q4H PRN PRN Reason: Itching Docusate Sodium (Colace) 100 mg PO BID PRN PRN Reason: Constipation Last Admin: 03/30/20 22:37 Dose: 100 mg Documented by: Enoxaparin Sodium (Lovenox) 30 mg SUBCUT DAILY [facility] Last Admin: 03/31/20 10:24 Dose: 30 mg Documented by: Fentanyl (Sublimaze) 10 - 30 mcg IVPUSH Q1H PRN PRN Reason: Pain (severe 7-10) Ferrous Sulfate (Ferrous Sulfate) 325 mg PO BIDMEALS [facility] Last Admin: 03/31/20 10:22 Dose: 325 mg Documented by: Furosemide (Lasix) 80 mg PO DAILY [facility] Last Admin: 03/31/20 10:23 Dose: 80 mg Documented by: Hydroxyzine HCl (Vistaril) 50 mg IM Q4H PRN PRN Reason: Nausea Last Admin: 03/28/20 12:39 Dose: 50 mg Documented by: Isosorbide Mononitrate (Imdur) 30 mg PO DAILY [facility] Last Admin: 03/31/20 10:21 Dose: 30 mg Documented by: Losartan Potassium (Cozaar) 25 mg PO BID [facility] Last Admin: 03/31/20 10:22 Dose: 25 mg Documented by: Magnesium Hydroxide (Milk Of Magnesia) 30 ml PO BID [facility] Last Admin: 03/31/20 10:33 Dose: 30 ml Documented by: Mirtazapine (Remeron) 15 mg PO BEDTIME [facility] Last Admin: 03/30/20 20:35 Dose: 15 mg Documented by: Oxycodone/Acetaminophen (Percocet 325-5 Mg) 1 - 2 tab PO Q4H PRN PRN Reason: Abdominal Pain Last Admin: 03/31/20 10:33 Dose: 1 tab Documented by: Rosuvastatin Calcium (Crestor) 5 mg PO DAILY [facility] Last Admin: 03/31/20 10:21 Dose: 5 mg Documented by: Senna/Docusate Sodium (Senna Plus) 1 tab PO BID PRN PRN Reason: Constipation Tamsulosin HCl (Flomax) 0.4 mg PO DAILY [facility] Last Admin: 03/31/20 10:23 Dose: 0.4 mg Documented by: Zolpidem Tartrate (Ambien) 5 mg PO BEDTIME PRN PRN Reason: Insomnia Discontinued Medications Bupivacaine HCl/Epinephrine Bitart (Marcaine 0.5%/Epinephrine 1:200,000) 40 ml INJECT .[facility] ONE Stop: 03/28/20 11:30 Last Admin: 03/28/20 11:29 Dose: 40 ml Documented by: Carvedilol (Coreg) 6.25 mg PO BID [facility] Colchicine (Colcrys) 0.3 mg PO ONETIME ONE Stop: 03/30/20 11:16 Last Admin: 03/30/20 11:10 Dose: 0.3 mg Documented by: Ropivacaine 32 ml/Dexamethasone 8 mg/Epinephrine HCl 0.4 mg/ Sodium Chloride 45.6 ml 0 ml NERVRT ASDIRECTED [facility] Last Admin: 03/28/20 09:48 Dose: 80 syringe Documented by: Dexamethasone (Dexamethasone) Confirm Administered Dose 4 mg .ROUTE .STK-MED ONE Stop: 03/28/20 08:19 Docusate Sodium (Colace) 100 mg PO BID PRN PRN Reason: Constipation Fentanyl (Sublimaze) Confirm Administered Dose 250 mcg .ROUTE .[facility] ONE Stop: 03/28/20 09:21 Fentanyl (Sublimaze) Confirm Administered Dose 100 mcg .ROUTE .[facility]K-[facility] ONE Stop: 03/28/20 11:58 Fentanyl (Sublimaze) 50 mcg IVPUSH ONETIME ONE Stop: 03/28/20 12:46 Last Admin: 03/28/20 17:56 Dose: Not Given Documented by: Furosemide (Lasix) 80 mg PO DAILY [facility] Glycopyrrolate (Robinul) Confirm Administered Dose 1 mg .ROUTE .STK-MED ONE Stop: 03/28/20 08:19 Hydromorphone HCl (Dilaudid [employer] [place] 15 Mg In Ns 30 Ml) 0 mg IV ASDIRECTED PRN; Protocol PRN 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 Last Admin: 03/28/20 12:08 Dose: 1.5 mg Documented by: Sodium Chloride (Normal Saline) 1,000 mls @ 75 mls/hr IV ASDIRECTED [facility] Last Admin: 03/28/20 09:05 Dose: 75 mls/hr Documented by: Cefazolin Sodium/Dextrose 2 gm (/ Premix) 50 mls @ 100 mls/hr IV ONETIME ONE Stop: 03/28/20 08:59 Last Admin: 03/28/20 09:06 Dose: 100 mls/hr Documented by: Metronidazole 500 mg/ Premix 100 mls @ 100 mls/hr IV ONETIME ONE Stop: 03/28/20 09:29 Last Admin: 03/28/20 09:10 Dose: 100 mls/hr Documented by: Sodium Chloride (Normal Saline) 1,000 mls @ 125 mls/hr IV ASDIRECTED [facility] Last Admin: 03/30/20 03:37 Dose: 125 mls/hr Documented by: Calcium Gluconate 2 gm/ Sodium (Chloride) 120 mls @ 60 mls/hr IV ONETIME ONE Stop: 03/30/20 09:59 Last Admin: 03/30/20 08:13 Dose: 60 mls/hr Documented by: Calcium Gluconate 2 gm/ Sodium (Chloride) 120 mls @ 100 mls/hr IV ONETIME ONE Stop: 03/30/20 18:47 Last Admin: 03/30/20 17:53 Dose: 100 mls/hr Documented by: Calcium Gluconate 2 gm/ Sodium (Chloride) 120 mls @ 100 mls/hr IV ONETIME ONE Stop: 03/31/20 10:41 Last Admin: 03/31/20 10:16 Dose: 100 mls/hr Documented by: Isosorbide Mononitrate (Imdur) 30 mg PO DAILY [facility] Losartan Potassium (Cozaar) 25 mg PO BID [facility] Mirtazapine (Remeron) 15 mg PO BEDTIME [facility] Naloxone HCl (Narcan) 0.1 mg IV ASDIRECTED PRN PRN Reason: decreased respiratory rate Neostigmine Methylsulfate (Neostigmine) Confirm Administered Dose 5 mg .ROUTE .STK-MED ONE Stop: 03/28/20 08:19 Non-Formulary Medication (Citalopram Hydrobromide [Celexa]) 40 mg PO DAILY [facility] Non-Formulary Medication (Rosuvastatin [Crestor]) 5 mg PO DAILY [facility] Ondansetron HCl (Zofran) Confirm Administered Dose 4 mg .ROUTE .STK-MED ONE Stop: 03/28/20 08:19 Oxycodone/Acetaminophen (Percocet 325-10 Mg) 2 tab PO Q4H PRN PRN Reason: Pain (moderate 4-6) Potassium Chloride (Klor-Con M20) 40 meq PO ONETIME ONE Stop: 03/31/20 08:31 Last Admin: 03/31/20 10:21 Dose: 40 meq Documented by: Propofol (Diprivan 20 Ml) Confirm Administered Dose 200 mg .ROUTE .STK-MED ONE Stop: 03/28/20 08:19 Rocuronium [place] (Zemuron) Confirm Administered Dose 50 mg .ROUTE .STK-MED ONE Stop: 03/28/20 08:19 Sodium Polystyrene Sulfonate (Kayexalate) 30 gm PO ONETIME ONE Stop: 03/29/20 05:46 Last Admin: 03/29/20 06:12 Dose: 30 gm Documented by: Succinylcholine Chloride (Quelicin) Confirm Administered Dose 200 mg .ROUTE .STK-MED ONE Stop: 03/28/20 08:19 Tamsulosin HCl (Flomax) 0.4 mg PO DAILY [facility] - Exam Quality Assessment: DVT Prophylaxis General: Alert, Oriented, Cooperative, Mild Distress Lungs: Clear to Auscultation, Normal Respiratory Effort Cardiovascular: Regular Rate, Regular Rhythm, No Murmurs GI/Abdominal Exam: Soft, No Organomegaly, Tender. No: Distended, Guarding, Rigid, Rebound Extremities: Non-Tender, No Pedal Edema Sepsis Event Note - Evaluation Sepsis Screening Result: No Definite Risk - Focused Exam Vital Signs: Vital Signs Temp Pulse Pulse Resp BP BP Pulse Ox 03/31/20 10:39 98.0 F 82 18 143/54 H 99 03/31/20 10:22 67 126/47 L 03/31/20 10:21 126/47 L 03/31/20 07:24 97 03/31/20 07:00 98.0 F 67 18 126/47 L 97 03/31/20 03:38 98.7 F 78 18 133/62 98 03/31/20 01:18 97 03/31/20 00:00 98.9 F 75 16 122/60 98 Date Exam was Performed: 03/31/20 Time Exam was Performed: 11:57 Consult PN Assessment/Plan Procedures: Procedures ASSAY OF COPPER (06/24/18) ASSAY OF FERRITIN (06/24/18) ASSAY OF FOLIC ACID SERUM (06/24/18) ASSAY OF MAGNESIUM (06/24/18) ASSAY OF NATRIURETIC PEPTIDE (06/24/18) ASSAY OF PHOSPHORUS (06/24/18) ASSAY OF VITAMIN A (06/24/18) ASSAY OF ZINC (06/24/18) BLOOD TRANSFUSION SERVICE (06/24/18) BLOOD TYPING SEROLOGIC ABO (06/24/18) BLOOD TYPING SEROLOGIC RH(D) (06/24/18) COMPATIBILITY TEST ANTIGLOB (06/24/18) COMPATIBILITY TEST SPIN (06/24/18) COMPLETE CBC AUTOMATED (06/24/18) COMPLETE CBC W/AUTO DIFF WBC (06/24/18) COMPREHEN METABOLIC PANEL (06/24/18) GLUCOSE BLOOD TEST (06/24/18) IIV NO PRSV INCREASED AG IM (06/24/18) METABOLIC PANEL TOTAL CA (06/24/18) PROTHROMBIN TIME (06/24/18) RBC ANTIBODY SCREEN (06/24/18) ROUTINE VENIPUNCTURE (06/24/18) THROMBOPLASTIN TIME PARTIAL (06/24/18) VITAMIN B-12 (06/24/18) X-RAY EXAM CHEST 2 VIEWS (06/24/18) Problem List Initiated/Reviewed/Updated: Yes My Orders Last 24 Hours: My Active Orders 03/30/20 13:50 OT Evaluation and Treatment [CONS] Routine 03/30/20 15:23 TIFFANY Hose [Antiembolic Hose] [OM.PC] Routine 03/30/20 17:00 Ferrous Sulfate 325 mg PO BIDMEALS 03/31/20 11:56 Remove Yoon Catheter [Urinary Catheter Removal] [RC] PER UNIT ROUTINE Plan: ASSESSMENT AND RECOMMENDATIONS STATUS POST LARGE VENTRAL HERNIA REPAIR -Postoperative management per Dr. Mccormick CONGESTIVE HEART FAILURE-well compensated prior to surgery, no evidence of significant fluid overload or failure at this time -Continue furosemide ARB and beta-husam -Monitor fluid status closely ANEMIA-chronic, drop postoperatively likely secondary to surgery. Hemoglobin is now above goal at 8.1 -Recheck hemoglobin in a.m. LEFT ANKLE PAIN-pain has improved -PT consult CORONARY ARTERY DISEASE-asymptomatic prior to surgery. Angiogram within the past year showed no evidence of reocclusion. -Continue outpatient medical therapy ACUTE KIDNEY INJURY-renal function now at baseline -Closely monitor urine output and renal function HYPERKALEMIA-solved ATRIAL FIBRILLATION-rate well controlled -Resume anticoagulation when stable from a surgical standpoint.
[2020-03-31] MEDS: Mirtazapine 15 MG Tab PO SCH (20:33)
[2020-04-01] MEDS: Acetaminophen/oxyCODONE 325-5 MG Tab PO PRN ×2 (02:15→07:40)
[2020-04-01] MEDS: Ferrous Sulfate 325 MG Tab PO SCH (07:51)
[2020-04-01] MEDS: Carvedilol 6.25 MG Tab PO SCH (08:00)
[2020-04-01] MEDS: Citalopram 20 MG Tab PO SCH (08:00)
[2020-04-01] MEDS: Isosorbide Mononitrate 30 MG Tab.ER PO SCH (08:00)
[2020-04-01] MEDS ORDERED: Bisacodyl 10 MG Supp RECTAL ONE (08:00)
[2020-04-01] MEDS: Losartan 25 MG Tab PO SCH (08:01)
[2020-04-01] MEDS: Rosuvastatin 10 MG Tab PO SCH (08:01)
[2020-04-01] MEDS: Furosemide 40 MG Tab PO SCH (08:01)
[2020-04-01] MEDS: Tamsulosin 0.4 MG Cap.ER PO SCH (08:01)
[2020-04-01] MEDS: Enoxaparin 30 MG/0.3 ML Syringe SUBCUT SCH (08:03)
[2020-04-01] MEDS ORDERED: Sodium Phosphate,Monobasic/Sodium Phosphate,Dibasic Enema 133 ML Bottle RECTAL ONE (08:33)
[2020-04-01] MEDS ORDERED: Lactulose Soln 10 GM/15 ML 15 ML UD Cup PO SCH (09:00)
[2020-04-01] MEDS: Magnesium Hydroxide 400 MG/5 ML Susp 30 ML Cup PO SCH (09:49)
--- NOTE | 2020-04-01 12:52 | DISCH ---
DISCHARGE DIAGNOSIS: Status post open component separation hernia repair. COMPLICATIONS DURING THIS HOSPITALIZATION: None. SUMMARY OF HOSPITAL COURSE: A pleasant, 69-year-old female who has had 3 large hernias, which is refractory to traditional hernia repair. Therefore, open component hernia separation surgery was selected. The patient underwent an uneventful separation surgery. This was an anterior/external oblique approach. The patient recovered well postoperatively. Her pain transitioned to well controlled with minimal p.o. pain medications. The hospitalist services were also consulted to keep her on target with respect to her kidney and respiratory underlying issues. The patient had no complications during hospitalization. FOLLOWUP: With Surgery in 7 to 14 days in [place]. ACTIVITY: As tolerated except for no lifting more than 30 pounds x30 days. DISCHARGE MEDICATIONS: Please see MAR, but include a small amount of [place] for pain.
== END 2020-04-01 11:45 | DRG 354 ==
LOC: JP.SDSSCHI 08:05 → JP.SDS 08:05 → EDSTATUS 09:30 → JP.MS 11:56
PROVIDERS: ADMIT Surgery; ATTEND Surgery
PROC: 0WUF0JZ Supplement Abdominal Wall with Synthetic Substitute, Open Approach (ICD-10-PCS; principal; 2020-03-28)
PROC: 30233N1 Transfusion of Nonautologous Red Blood Cells into Peripheral Vein, Percutaneous Approach (ICD-10-PCS; 2020-03-31)
DX: K43.9 Ventral hernia without obstruction or gangrene (principal); N17.9 Acute kidney failure, unspecified; I13.0 Hypertensive heart and chronic kidney disease with heart failure and stage 1 through stage 4 chronic kidney disease, or unspecified chronic kidney disease; I50.32 Chronic diastolic (congestive) heart failure; I25.10 Atherosclerotic heart disease of native coronary artery without angina pectoris; E87.5 Hyperkalemia; I48.91 Unspecified atrial fibrillation; M25.572 Pain in left ankle and joints of left foot; D50.0 Iron deficiency anemia secondary to blood loss (chronic); N18.2 Chronic kidney disease, stage 2 (mild); Z79.01 Long term (current) use of anticoagulants; Z88.6 Allergy status to analgesic agent; Z88.8 Allergy status to other drugs, medicaments and biological substances; Z79.899 Other long term (current) drug therapy; Z95.0 Presence of cardiac pacemaker; Z11.59 Encounter for screening for other viral diseases
CPT/HCPCS: 36415; 36430; 76705; 76705-26; 80048; 82330; 85025; 85027; 86850; 86900; 86901; 86920; 86922; 94762; 97110-GP; 97162-GP; 97165-GO; 97530-GP; A9270-GY; C1713; C1781; J0171; J0330; J0610; J0690; J1100; J1170; J1650; J2405; J2704; J2710; J2795; J3010; J3410; J3490; J7030; J7050; P9016; U0002